=== PATIENT | female | born 1985 | race Hispanic/Latino ===

== ENCOUNTER 2017-08-04 14:07 | Emergency (ER) | payer MEDICAID, OTHER ==
[2017-08-04] MEDS ORDERED: TORADOL IM ONE (15:01)
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
[2017-08-04 20:00] VITALS: BP 125/63
== END 2017-08-04 20:00 | disposition home or self-care (01) ==
LOC: ED 14:07
DX: S16.1XXA Strain of muscle, fascia and tendon at neck level, initial encounter (principal); S39.012A Strain of muscle, fascia and tendon of lower back, initial encounter; S99.912A Unspecified injury of left ankle, initial encounter; R10.2 Pelvic and perineal pain; V49.40XA Driver injured in collision with unspecified motor vehicles in traffic accident, initial encounter; Y93.89 Activity, other specified; Y99.8 Other external cause status; Y92.488 Other paved roadways as the place of occurrence of the external cause
CPT/HCPCS: 72040; 72100; 72170; 73610; 96372; 99283; J1885

== ENCOUNTER 2018-02-25 14:27 | Emergency (ER) | payer OTHER ==
--- NOTE | 2018-02-25 17:56 | Emergency Department Report ---
ED Female HPI - General Chief complaint: Vaginal Bleeding Stated complaint: SEVERE BLEEDING VAGINAL, POSS Time Seen by Provider: 02/25/18 17:33 Source: patient, family Mode of arrival: Ambulatory Limitations: No Limitations - History of Present Illness Initial comments: This is a 32-year-old patient here reports that she has heavy vaginal bleeding with pelvic pain and she has Nexaplon in her left arm that has been placed by previous TECHNICAL WRITER AND EDITOR doctor. She said she [facility] appointment with [facility]. Patient states she is worried because she has a history of ectopic and she has had control implant in for a year and she has been having heaviness vaginal bleeding and pelvic pain on and off. Denies any vaginal discharge, urinary burning frequency or urgency. Denies tobacco pain. She said pain is 8 out of 10 and crampy on and off. Patient also reports that she has been having bleeding since 3 days ago and she has been using 4-5 pads per day. She said her last menstrual period was 01/24/2018coming on and off and she has had. Twice and it restarted again at 02/19/2018. She says she took a test and it was positive that it was negative 2. MD Complaint: vaginal bleeding, pelvic pain Onset/Timin -: days(s) Location: suprapubic Radiation: non-radiating Severity: severe Severity scale (0 -10): 8 Quality: cramping Consistency: intermittent Improves with: none Worsens with: none Are you Now?: No (unknown) Last Menstrual Period: 02/19/18 EDC: 11/26/18 Associated Symptoms: vaginal bleeding, abdominal pain. denies: vaginal discharge, nausea/vomiting, fever/chills, headaches, loss of appetite, dysuria, hematuria, rash, seizure, shortness of breath, syncope, weakness - Related Data Sexually active: Yes Home Medications Medication Instructions Recorded Confirmed Last Taken Folic Acid [Folvite] 1 mg PO QDAY 03/21/15 03/21/15 03/21/15 Vitamin 03/21/15 03/21/15 03/21/15 Previous Rx's Medication Instructions Recorded Last Taken Type Txuyyjzw50/Iron/Folate8/Ps-Dha 1 each PO QDAY #30 03/21/15 Unknown Rx [Enbrace Hr Softgel] Acetaminophen/Codeine [Tylenol #3] 1 tab PO Q6H PRN #15 tab 02/04/16 Unknown Rx Clindamycin [Clindamycin CAP] 300 mg PO Q8H #30 cap 02/04/16 Unknown Rx Naproxen [Naprosyn] 500 mg PO BID #14 tablet 02/25/18 Unknown Rx Allergies Allergy/AdvReac Type Severity Reaction Status Date / Time No Known Allergies Allergy Unverified 09/29/13 15:56 ED Review of Systems ROS: Stated complaint: SEVERE BLEEDING VAGINAL, POSS Other details as noted in HPI Constitutional: denies: chills, fever Eyes: denies: eye pain, eye discharge ENT: denies: ear pain, throat pain, congestion Respiratory: denies: cough, orthopnea, shortness of breath, SOB with exertion, SOB at rest, stridor, wheezing Cardiovascular: denies: chest pain, palpitations, edema, syncope Gastrointestinal: abdominal pain. denies: nausea, vomiting, diarrhea, constipation, hematemesis, melena, hematochezia Genitourinary: abnormal menses, other (vaginal bleeding ). denies: urgency, dysuria, frequency, hematuria, discharge, dyspareunia Musculoskeletal: denies: back pain, joint swelling, arthralgia, myalgia Skin: denies: rash, lesions Neurological: denies: headache, weakness, numbness, paresthesias ED Past Medical Hx - Past Medical History Previous Medical History?: Yes Additional medical history: Vaginal delivery x 2, Miscarriage x 2 - Surgical History Past Surgical History?: Yes Additional Surgical History: ectopic ,RIGHT TUBE REMOVED - Family History Family history: hypertension - Social History Smoking Status: Never Smoker Substance Use Type: Alcohol - Medications Home Medications: Home Medications Medication Instructions Recorded Confirmed Last Taken Type Folic Acid [Folvite] 1 mg PO QDAY 03/21/15 03/21/15 03/21/15 History Vitamin 03/21/15 03/21/15 03/21/15 History Hfixthbq58/Iron/Folate8/Ps-Dha 1 each PO QDAY #30 03/21/15 Unknown Rx [Enbrace Hr Softgel] Acetaminophen/Codeine [Tylenol #3] 1 tab PO Q6H PRN #15 tab 02/04/16 Unknown Rx Clindamycin [Clindamycin CAP] 300 mg PO Q8H #30 cap 02/04/16 Unknown Rx Naproxen [Naprosyn] 500 mg PO BID #14 tablet 02/25/18 Unknown Rx ED Physical Exam - General Limitations: No Limitations General appearance: alert, in no apparent distress - Head Head exam: Present: atraumatic, normocephalic, normal inspection - Eye Eye exam: Present: normal appearance, PERRL, EOMI Pupils: Present: normal accommodation - ENT ENT exam: Present: normal exam, normal orophraynx, mucous membranes moist, TM's normal bilaterally, normal external ear exam - Neck Neck exam: Present: normal inspection, full ROM. Absent: tenderness, meningismus, lymphadenopathy - Respiratory Respiratory exam: Present: normal lung sounds bilaterally. Absent: respiratory distress, chest wall tenderness, accessory muscle use - Cardiovascular Cardiovascular Exam: Present: regular rate, normal rhythm, normal heart sounds. Absent: systolic murmur, diastolic murmur - GI/Abdominal GI/Abdominal exam: Present: soft, tenderness (suprapubic area), normal bowel sounds. Absent: distended, guarding, rebound, rigid, organomegaly, mass, bruit , pulsatile mass, hernia - Extremities Exam Extremities exam: Present: normal inspection, full ROM, normal capillary refill , other (No cce. + 2 pulses in all extremities, no neurovascular compromise). Absent: tenderness, pedal edema, joint swelling, calf tenderness - Back Exam Back exam: Present: normal inspection, full ROM, other (ambulates without any difficulties). Absent: tenderness, CVA tenderness (R), CVA tenderness (L), muscle spasm, paraspinal tenderness, vertebral tenderness, rash noted - Neurological Exam Neurological exam: Present: alert, oriented X3, normal gait, reflexes normal. Absent: motor sensory deficit - Psychiatric Psychiatric exam: Present: normal affect, normal mood - Skin Skin exam: Present: warm, dry, intact, normal color. Absent: rash ED Course Vital Signs 02/25/18 02/25/18 14:57 22:21 Temperature 99 F 98.8 F Pulse Rate 73 74 Respiratory 18 16 Rate Blood Pressure 117/67 Blood Pressure 127/60 [Right] O2 Sat by Pulse 100 100 Oximetry - Reevaluation(s) Reevaluation #1: 02/26/18 21:10 Patient given normal saline 1 L emergency room. She has been stable throughout ER stay ED Medical Decision Making - Lab Data Result diagrams: 02/25/18 18:10 02/25/18 18:10 Lab Results 02/25/18 02/25/18 02/25/18 Range/Units 18:10 18:10 18:10 WBC 5.3 (4.5-11.0) K/mm3 RBC 4.73 (3.65-5.03) M/mm3 Hgb 13.6 (10.1-14.3) gm/dl Hct 39.4 (30.3-42.9) % MCV 83 (79-97) fl MCH 29 (28-32) pg MCHC 35 H (30-34) % RDW 13.7 (13.2-15.2) % Plt Count 171 (140-440) K/mm3 Lymph % (Auto) 25.3 (13.4-35.0) % [place] % (Auto) 7.2 (0.0-7.3) % Eos % (Auto) 3.3 (0.0-4.3) % Baso % (Auto) 0.3 (0.0-1.8) % Lymph # 1.3 (1.2-5.4) K/mm3 [place] # 0.4 (0.0-0.8) K/mm3 Eos # 0.2 (0.0-0.4) K/mm3 Baso # 0.0 (0.0-0.1) K/mm3 Seg Neutrophils % 63.9 (40.0-70.0) % Seg Neutrophils # 3.4 (1.8-7.7) K/mm3 Sodium 136 L (137-145) mmol/L Potassium 3.5 L (3.6-5.0) mmol/L Chloride 99.9 (98-107) mmol/L Carbon Dioxide 26 (22-30) mmol/L Anion Gap 14 mmol/L BUN 15 (7-17) mg/dL Creatinine 0.6 L (0.7-1.2) mg/dL Estimated GFR > 60 ml/min BUN/Creatinine Ratio 25 % Glucose 90 (65-100) mg/dL Calcium 9.3 (8.4-10.2) mg/dL Urine Color (Yellow) Urine Turbidity (Clear) Urine pH (5.0-7.0) Ur Specific [place] (1.003-1.030) Urine Protein (Negative) mg/dL Urine Glucose (UA) (Negative) mg/dL Urine Ketones (Negative) mg/dL Urine Blood (Negative) Urine Nitrite (Negative) Ur Reducing Substances Urine Bilirubin (Negative) Urine Ictotest Urine Urobilinogen (<2.0) mg/dL Ur Leukocyte Esterase (Negative) Urine WBC (Auto) (0.0-6.0) /HPF Urine RBC (Auto) (0.0-6.0) /HPF U Epithel Cells (Auto) (0-13.0) /HPF Urine HCG, Qual (Negative) Blood Type AB NEGATIVE 02/25/18 Range/Units 18:34 WBC (4.5-11.0) K/mm3 RBC (3.65-5.03) M/mm3 Hgb (10.1-14.3) gm/dl Hct (30.3-42.9) % MCV (79-97) fl MCH (28-32) pg MCHC (30-34) % RDW (13.2-15.2) % Plt Count (140-440) K/mm3 Lymph % (Auto) (13.4-35.0) % [place] % (Auto) (0.0-7.3) % Eos % (Auto) (0.0-4.3) % Baso % (Auto) (0.0-1.8) % Lymph # (1.2-5.4) K/mm3 [place] # (0.0-0.8) K/mm3 Eos # (0.0-0.4) K/mm3 Baso # (0.0-0.1) K/mm3 Seg Neutrophils % (40.0-70.0) % Seg Neutrophils # (1.8-7.7) K/mm3 Sodium (137-145) mmol/L Potassium (3.6-5.0) mmol/L Chloride (98-107) mmol/L Carbon Dioxide (22-30) mmol/L Anion Gap mmol/L BUN (7-17) mg/dL Creatinine (0.7-1.2) mg/dL Estimated GFR ml/min BUN/Creatinine Ratio % Glucose (65-100) mg/dL Calcium (8.4-10.2) mg/dL Urine Color Red (Yellow) Urine Turbidity Cloudy (Clear) Urine pH 5.0 (5.0-7.0) Ur Specific [place] 1.020 (1.003-1.030) Urine Protein 30 mg/dl (Negative) mg/dL Urine Glucose (UA) Negative (Negative) mg/dL Urine Ketones Negative (Negative) mg/dL Urine Blood Large A (Negative) Urine Nitrite Negative (Negative) Ur Reducing Substances Not Reportable Urine Bilirubin Negative (Negative) Urine Ictotest Not Reportable Urine Urobilinogen < 2.0 (<2.0) mg/dL Ur Leukocyte Esterase Negative (Negative) Urine WBC (Auto) < 1.0 (0.0-6.0) /HPF Urine RBC (Auto) > 182.0 (0.0-6.0) /HPF U Epithel Cells (Auto) 4.0 (0-13.0) /HPF Urine HCG, Qual Negative (Negative) Blood Type - Radiology Data Radiology results: report reviewed Pelvic and transvaginal ultrasound dictated by radiologist and reports reviewed by myself . Please see details below. Patient: ISIDRO MEJIA MR#: [id number] : 1985 Acct:[id number] Age/Sex: 32 / F ADM Date: 02/25/18 Loc: ED Attending Dr: Ordering Physician: STONE ISSA Date of Service: 02/25/18 Procedure(s): US transvaginal Accession Number(s): [id number] cc: STONE ISSA FINAL REPORT PROCEDURE: US TRANSVAGINAL TECHNIQUE: Real-time transabdominal sonography in multiple planes of pelvis was performed with image documentation. This examination was performed without Doppler. Vascular abnormalities, including ovarian torsion, will not be detectable without Doppler evaluation. CPT 58904 HISTORY: heavy vaginal bleeding with pelvic pain COMPARISON: No prior studies are available for comparison. FINDINGS: UTERUS Size: 8.6 x 4.0 x 5.6 cm. Endometrial thickness: 5.6 mm. Orientation: anteverted. Cervix: Thin layer of fluid is noted in the cervical canal. Fibroids/masses: 3.1 x 2.0 x 2.4 centimeters with normal Doppler signal. Demonstrates follicular changes.. RIGHT Ovary: 1.4 x 1.3 x 1.1 cm. Appearance: Normal in appearance with normal Doppler signal.. LEFT Ovary: cm. Appearance: Normal. Pelvic fluid: None. Other: None. IMPRESSION: Unremarkable study Transcribed By: [facility] Dictated By: LATOSHA PAK Electronically Authenticated By: LATOSHA PAK Signed Date/Time: 02/25/182041 DD/ 41 TD/TT: 02/25/182041 Findings [facility] [address] [place] [address] Ultrasound Report Signed Patient: ISIDRO MEJIA MR#: [id number] : 1985 Acct:[id number] Age/Sex: 32 / F ADM Date: 02/25/18 Loc: ED Attending Dr: Ordering Physician: STONE ISSA Date of Service: 02/25/18 Procedure(s): US pelvic complete Accession Number(s): [id number] cc: STONE ISSA FINAL REPORT PROCEDURE: US PELVIC COMPLETE TECHNIQUE: Real-time transabdominal sonography in multiple planes of pelvis was performed with image documentation. This examination was performed without Doppler. Vascular abnormalities, including ovarian torsion, will not be detectable without Doppler evaluation. CPT 03696 HISTORY: heavy vaginal bleeding with pelvic pain COMPARISON: No prior studies are available for comparison. FINDINGS: UTERUS Size: 8.6 x 4.0 x 5.6 cm. Endometrial thickness: 5.6 mm. Orientation: anteverted. Cervix: Thin layer of fluid is noted in the cervical canal. Fibroids/masses: 3.1 x 2.0 x 2.4 centimeters with normal Doppler signal. Demonstrates follicular changes.. RIGHT Ovary: 1.4 x 1.3 x 1.1 cm. Appearance: Normal in appearance with normal Doppler signal.. LEFT Ovary: cm. Appearance: Normal. Pelvic fluid: None. Other: None. IMPRESSION: Unremarkable study Transcribed By: [facility] Dictated By: LATOSHA PAK Electronically Authenticated By: LATOSHA PAK Signed Date/Time: 02/25/182042 DD/ 42 TD/TT: 02/25/182042 - Medical Decision Making Patient reported that she has been having heavy vaginal bleeding with pelvic pain and concern for ectopic she has had a history of ectopic . Since that she also has control implant in her left arm which she has had in for 1 year and she is not sure if this is the cause of heavy vaginal bleeding but she is here to be evaluated. She was evaluated and examined by myself. Her physical finding is normal except she has mild tenderness no suprapubic area. test is negative. Patient had transvaginal and transabdominal ultrasound which as dictated by radiology and report reviewed by myself. findings unremarkable. I discussed the patient x-ray reports, laboratory reports, diagnosis and treatment plan the patient. Patient with menometrorrhagia, pelvic pain. Her CBC is stable with no acute blood loss, CMP and urinalysis stable except she has large amount of blood in her urine which is probably coming from her menstrual cycle. I discussed the patient that she needs to keep her appointment with her TECHNICAL WRITER AND EDITOR doctor and they will be able to access her laboratory report and ultrasound report that she had done today. Patient to follow-up with less likely TECHNICAL WRITER AND EDITOR and I also gave her referral to Dr. Perla who is product marketing consultant. Discharged home in stable condition with prescription for naproxen. She is nontoxic in appearance. Patient denies any pain prior to discharge. - Differential Diagnosis ectopic , ovarian VS torsion, , fibroids, DUB, UTI Critical care attestation.: If time is entered above; I have spent that time in minutes in the direct care of this critically ill patient, excluding procedure time. ED Disposition Clinical Impression: Menometrorrhagia, Pelvic pain Disposition: DC-01 TO HOME OR SELFCARE Is pt being admited?: No Does the pt Need Aspirin: No Condition: Stable Instructions: Abdominal Pain (ED), Menorrhagia (ED) Additional Instructions: Please follow up with TECHNICAL WRITER AND EDITOR as discussed and is scheduled for abnormal uterine bleeding. Your TECHNICAL WRITER [facility] will be able to access the ultrasound and lab results from today. Since you are going to see new TECHNICAL WRITER AND EDITOR, remember to let them know that you have NEXAPLON Your lab works is stable and your ultrasound report is stable. Take naproxen for pelvic pain Prescriptions: Naproxen [Naprosyn] 500 mg PO BID #14 tablet Referrals: [facility] [Provider Group] - 2-3 Days CAROLINE PERLA [Staff Physician] - 2-3 Days [facility] [Outside] - 2-3 Days Forms: Work/School Release Form(ED)
[2018-02-25] MEDS ORDERED: NACL 0.9% 1000 ML 1,000 ML IV ONE (17:58)
[2018-02-25 18:44] LABS: Basophils % (Auto) 0.3 % (0.0-1.8); Eosinophils # (Auto) 0.2 K/mm3 (0.0-0.4); Eosinophils % (Auto) 3.3 % (0.0-4.3); Hematocrit 39.4 % (30.3-42.9); Hemoglobin 13.6 gm/dl (10.1-14.3); Lymphocytes # (Auto) 1.3 K/mm3 (1.2-5.4); Lymphocytes % (Auto) 25.3 % (13.4-35.0); Mean Corpuscular HGB Conc 35 % (30-34); Mean Corpuscular Hemoglobin 29 pg (28-32); Mean Corpuscular Volume 83 fl (79-97); Monocytes # (Auto) 0.4 K/mm3 (0.0-0.8); Monocytes % (Auto) 7.2 % (0.0-7.3); Platelet Count 171 K/mm3 (140-440); Red Blood Count 4.73 M/mm3 (3.65-5.03); Red Cell Distribution Width 13.7 % (13.2-15.2)
[2018-02-25 19:17] LABS: HCG Qualitative,Urine Negative (Negative)
[2018-02-25 19:26] LABS: BUN/Creatinine Ratio 25; Blood Urea Nitrogen 15 mg/dL (7-17); Calcium 9.3 mg/dL (8.4-10.2); Hemolysis Index 5
[2018-02-25 19:32] LABS: Bilirubin,Urine Negative (Negative); Color,Urine Red (Yellow)
[2018-02-25 19:33] LABS: Blood,Urine Large (Negative); RBC,Urine > 182.0 /HPF (0.0-6.0); Urobilinogen,Urine < 2.0 mg/dL (<2.0); WBC,Urine < 1.0 /HPF (0.0-6.0)
--- NOTE | 2018-02-25 20:49 | Ultrasound Report ---
FINAL REPORT PROCEDURE: US TRANSVAGINAL TECHNIQUE: Real-time transabdominal sonography in multiple planes of pelvis was performed with image documentation. This examination was performed without Doppler. Vascular abnormalities, including ovarian torsion, will not be detectable without Doppler evaluation. CPT 56068 HISTORY: heavy vaginal bleeding with pelvic pain COMPARISON: No prior studies are available for comparison. FINDINGS: UTERUS Size: 8.6 x 4.0 x 5.6 cm. Endometrial thickness: 5.6 mm. Orientation: anteverted. Cervix: Thin layer of fluid is noted in the cervical canal. Fibroids/masses: 3.1 x 2.0 x 2.4 centimeters with normal Doppler signal. Demonstrates follicular changes.. RIGHT Ovary: 1.4 x 1.3 x 1.1 cm. Appearance: Normal in appearance with normal Doppler signal.. LEFT Ovary: cm. Appearance: Normal. Pelvic fluid: None. Other: None. IMPRESSION: Unremarkable study
--- NOTE | 2018-02-25 20:51 | Ultrasound Report ---
FINAL REPORT PROCEDURE: US PELVIC COMPLETE TECHNIQUE: Real-time transabdominal sonography in multiple planes of pelvis was performed with image documentation. This examination was performed without Doppler. Vascular abnormalities, including ovarian torsion, will not be detectable without Doppler evaluation. CPT 31075 HISTORY: heavy vaginal bleeding with pelvic pain COMPARISON: No prior studies are available for comparison. FINDINGS: UTERUS Size: 8.6 x 4.0 x 5.6 cm. Endometrial thickness: 5.6 mm. Orientation: anteverted. Cervix: Thin layer of fluid is noted in the cervical canal. Fibroids/masses: 3.1 x 2.0 x 2.4 centimeters with normal Doppler signal. Demonstrates follicular changes.. RIGHT Ovary: 1.4 x 1.3 x 1.1 cm. Appearance: Normal in appearance with normal Doppler signal.. LEFT Ovary: cm. Appearance: Normal. Pelvic fluid: None. Other: None. IMPRESSION: Unremarkable study
[2018-02-25 22:23] VITALS: BP 127/60
== END 2018-02-25 22:15 | disposition home or self-care (01) ==
LOC: ED 14:27
DX: N92.1 Excessive and frequent menstruation with irregular cycle (principal); R10.2 Pelvic and perineal pain
CPT/HCPCS: 36415; 76830; 76856; 80048; 81001; 81025; 85025; 86900; 86901